=== PATIENT | male | born 1970 | race Caucasian/White ===

== ENCOUNTER 2018-10-24 21:09 | Emergency (ER) | payer OTHER ==
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
[2018-10-24 21:40] VITALS: BP 122/77; PULSE 65; TEMP 98.3; BMI 25.7
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
== END 2018-10-24 23:03 | disposition home or self-care (01) ==
LOC: JERFT 21:09
DX: S16.1XXA Strain of muscle, fascia and tendon at neck level, initial encounter (principal); V49.49XA Driver injured in collision with other motor vehicles in traffic accident, initial encounter; Y92.488 Other paved roadways as the place of occurrence of the external cause; Y93.89 Activity, other specified; Y99.8 Other external cause status
CPT/HCPCS: 99281-25